=== PATIENT | male | born 1970 | race Caucasian/White ===

== ENCOUNTER 2016-12-07 06:44 | Emergency (ER) | payer BC ==
[2016-12-07 06:53] VITALS: BP 131/74
[2016-12-07] MEDS ORDERED: Sodium Chloride 0.9% 10 ML Syringe FLUSH PRN (07:02)
[2016-12-07] MEDS ORDERED: Ondansetron 4 MG/2 ML SDV IVPUSH ONE (07:02)
[2016-12-07] MEDS ORDERED: HYDROmorphone 1 MG/ML Syringe IVPUSH ONE ×2 (07:03→09:13)
[2016-12-07] MEDS ORDERED: Ketorolac 30 MG/ML SDV IVPUSH ONE (07:04)
--- NOTE | 2016-12-07 07:09 | EDM.PDOC ---
ED HPI GENERAL MEDICAL PROBLEM - General Chief Complaint: Abdominal Pain Stated Complaint: RT SIDE ABDOINAL PAIN Time Seen by Provider: 12/07/16 06:53 Source of Information: Reports: Patient History Limitations: Reports: No Limitations - History of Present Illness INITIAL COMMENTS - FREE TEXT/NARRATIVE: The patient presents with right flank and right abdominal pain. This started early this morning at 4am. He has nausea and vomiting. He has no diarrhea, dysuria or hematuria. He has a history of kidney stones. He denies fever, chills, cough, chest pain or shortness of breath. He has no gallbladder but he does have his appendix. Onset: Sudden Duration: Hour(s): (4am) Location: Reports: Abdomen (right side and flank) Quality: Reports: Sharp Severity: Severe Improves with: Reports: None Worsens with: Reports: None Associated Symptoms: Reports: Nausea/Vomiting. Denies: Chest Pain, Cough Right Abdomen Pain Score (Numeric/FACES): 10 - Related Data Allergies Allergy/AdvReac Type Severity Reaction Status Date / Time meperidine [From Demerol] Allergy Hives Verified 12/07/16 06:53 Home Meds: Home Meds Albuterol [Ventolin HFA] 2 puff INH Q4H PRN 12/23/13 [History] Tamsulosin HCl [Flomax] 0.4 mg PO DAILY #7 cap.er.24h 12/07/16 [Rx] oxyCODONE HCl/Acetaminophen [Percocet 5-325 mg Tablet] 1 - 2 each PO Q6HR PRN # 20 tablet 12/07/16 [Rx] Past Medical History Respiratory History: Reports: Asthma - Past Surgical History GI Surgical History: Reports: Cholecystectomy Male Surgical History: Reports: Kidney Stone Extraction Musculoskeletal Surgical History: Reports: Hip Replacement, ORIF Social & Family History - Tobacco Use Smoking Status *Q: Never Smoker - Caffeine Use Caffeine Use: Reports: None - Alcohol Use Days Per Week of Alcohol Use: 5 Number of Drinks Per Day: 2 Total Drinks Per Week: 10 - Recreational Drug Use Recreational Drug Use: No ED ROS GENERAL - Review of Systems Review Of Systems: See Below Constitutional: Reports: No Symptoms HEENT: Reports: No Symptoms Respiratory: Reports: No Symptoms Cardiovascular: Reports: No Symptoms Endocrine: Reports: No Symptoms GI/Abdominal: Reports: Abdominal Pain, Nausea, Vomiting. Denies: Diarrhea : Reports: Flank Pain (Right) Musculoskeletal: Reports: No Symptoms ED EXAM, GI/ABD - Physical Exam Exam: See Below Exam Limited By: No Limitations General Appearance: Alert, Mild Distress Ears: Normal External Exam Nose: Normal Inspection Head: Atraumatic, Normocephalic Neck: Normal Inspection Respiratory/Chest: No Respiratory Distress, Lungs Clear, Normal Breath Sounds Cardiovascular: Regular Rate, Rhythm, No Edema, No Murmur GI/Abdominal: Soft, No Organomegaly, No Mass, Tenderness (Mild tenderness to the right lateral abdomen.) Back Exam: Normal Inspection Course - Vital Signs Last Recorded V/S: Last Vital Signs Temp 96.9 F 12/07/16 06:50 Pulse 66 12/07/16 06:50 Resp 16 12/07/16 06:50 BP 131/74 12/07/16 06:50 Pulse Ox 97 12/07/16 06:50 - Orders/Labs/Meds Orders: Active Orders 24 hr Category Date Time Status Peripheral IV Care [RC] . DIRECTED Care 12/07/16 07:03 Active Abdomen Pelvis wo Cont [CT] Stat Exams 12/07/16 07:02 Taken Sodium Chloride 0.9% [Normal Saline] 1,000 ml Med 12/07/16 07:15 Active IV ASDIRECTED Sodium Chloride 0.9% [Saline Flush] Med 12/07/16 07:02 Active 10 ml FLUSH ASDIRECTED PRN ED Antiemetic Medication Reflex [OM.PC] Stat Oth 12/07/16 07:02 Ordered Peripheral IV Insertion Adult [OM.PC] Stat Oth 12/07/16 07:02 Ordered Medication Orders Sodium Chloride (Normal Saline) 1,000 mls @ 125 mls/hr IV ASDIRECTED ENEDELIA Last Admin: 12/07/16 07:19 Dose: 125 mls/hr Sodium Chloride (Saline Flush) 10 ml FLUSH ASDIRECTED PRN PRN Reason: Keep Vein Open Last Admin: 12/07/16 07:19 Dose: 10 ml Labs: Laboratory Tests 12/07/16 12/07/16 12/07/16 Range/Units 07:00 07:00 08:43 WBC 7.19 (4.23-9.07) K/mm3 RBC 5.47 (4.63-6.08) M/mm3 Hgb 15.5 (13.7-17.5) gm/L Hct 45.8 (40.1-51.0) % MCV 83.7 (79.0-92.2) fl MCH 28.3 (25.7-32.2) pg MCHC 33.8 (32.2-35.5) g/dl RDW Std Deviation 39.1 (35.1-43.9) fL Plt Count 192 (163-337) K/mm3 MPV 9.2 L (9.4-12.3) fl Neut % (Auto) 53.9 (34.0-67.9) % Lymph % (Auto) 32.5 (21.8-53.1) % Tift % (Auto) 10.4 (5.3-12.2) % Eos % (Auto) 2.8 (0.8-7.0) Baso % (Auto) 0.3 (0.1-1.2) % Neut # (Auto) 3.87 (1.78-5.38) K/mm3 Lymph # (Auto) 2.34 (1.32-3.57) K/mm3 [place] # (Auto) 0.75 (0.30-0.82) K/mm3 Eos # (Auto) 0.20 (0.04-0.54) K/mm3 Baso # (Auto) 0.02 (0.01-0.08) K/mm3 Sodium 143 (136-145) mEq/L Potassium 4.5 (3.5-5.1) mEq/L Chloride 109 H (98-107) mEq/L Carbon Dioxide 25 (21-32) mEq/L Anion Gap 13.5 (5-15) BUN 20 H (7-18) mg/dL Creatinine 1.0 (0.7-1.3) mg/dL Est Cr Clr Drug Dosing 98.31 mL/min Estimated GFR (MDRD) > 60 (>60) mL/min BUN/Creatinine Ratio 20.0 H (14-18) Glucose 167 H (74-106) mg/dL Calcium 8.3 L (8.5-10.1) mg/dL Total Bilirubin 0.4 (0.2-1.0) mg/dL AST 29 (15-37) U/L ALT 50 (16-63) U/L Alkaline Phosphatase 81 (46-116) U/L Total Protein 6.8 (6.4-8.2) g/dl Albumin 3.7 (3.4-5.0) g/dl Globulin 3.1 gm/dL Albumin/Globulin Ratio 1.2 (1-2) Lipase 247 (73-393) U/L Urine Color Yellow (Yellow) Urine Appearance Slt cloudy H (Clear) Urine pH 6.0 (5.0-8.0) Ur Specific [place] > or = 1.030 (1.005-1.030) Urine Protein 1+ H (Negative) Urine Glucose (UA) Negative (Negative) Urine Ketones Negative (Negative) Urine Occult Blood 3+ H (Negative) Urine Nitrite Negative (Negative) Urine Bilirubin Negative (Negative) Urine Urobilinogen 0.2 (0.2-1.0) Ur Leukocyte Esterase Negative (Negative) Urine RBC 50-75 H (0-5) /hpf Urine WBC 0-5 (0-5) /hpf Ur Epithelial Cells Not Reportable Ur Squamous Epith Cells 5-10 H (0-5) /hpf Urine Bacteria Rare (FEW) /hpf Urine Mucus Moderate H (FEW) /hpf Meds: Medications Generic Name Dose Route Start Last Admin Trade Name Freq PRN Reason Stop Dose Admin Sodium Chloride 1,000 mls @ 125 mls/hr 12/07/16 07:15 12/07/16 07:19 Normal Saline IV 125 mls/hr ASDIRECTED ENEDELIA Administration Sodium Chloride 10 ml 12/07/16 07:02 12/07/16 07:19 Saline Flush FLUSH 10 ml ASDIRECTED PRN Administration Keep Vein Open Discontinued Medications Generic Name Dose Route Start Last Admin Trade Name [place] PRN Reason Stop Dose Admin Hydromorphone HCl 1 mg 12/07/16 07:03 12/07/16 07:19 Dilaudid IVPUSH 12/07/16 07:04 1 mg ONETIME ONE Administration Ketorolac Tromethamine 30 mg 12/07/16 07:04 12/07/16 07:18 Toradol IVPUSH 12/07/16 07:05 30 mg ONETIME ONE Administration Ondansetron HCl 4 mg 12/07/16 07:02 12/07/16 07:18 Zofran IVPUSH 12/07/16 07:03 4 mg ONETIME ONE Administration - Re-Assessments/Exams Free Text/Narrative Re-Assessment/Exam: 12/07/16 07:08 I ordered an IV NS at 125mL/hr, zofran 4mg IV, toradol 30mg IV, dilaudid 1mg IV , labs, UA and CT of his abdomen and pelvis to look for a kidney stone. 12/07/16 09:14 His CBC is negative. His BUN is elevated at 20. His glucose is elevated at 167. His UA shows no UTI but the has blood. His CT shows 2.5mm proximal right ureteral calculus causes dilatation of the right ureter, and right collecting system. The right kidney is edematous and there is right perirenal stranding. He says the pain is coming back so I ordered more dilaudid and some flomax. I will give him a prescription for flomax and percocet. Departure - Departure Time of Disposition: 09:20 Disposition: Home, Self-Care 01 Condition: good Clinical Impression: Ureteric stone, Flank pain, Abdominal pain - Discharge Information Prescriptions: oxyCODONE HCl/Acetaminophen [Percocet 5-325 mg Tablet] 1 - 2 each PO Q6HR PRN # 20 tablet PRN Reason: Pain Tamsulosin HCl [Flomax] 0.4 mg PO DAILY #7 cap.er.24h Referrals: Deon Sidhu Jr, MD [Primary Care Provider] - Forms: ED Department Discharge Additional Instructions: ED HPI GENERAL MEDICAL PROBLEM - General Chief Complaint: Abdominal Pain Stated Complaint: RT SIDE ABDOINAL PAIN Time Seen by Provider: 12/07/16 06:53 Source of Information: Reports: Patient History Limitations: Reports: No Limitations - History of Present Illness INITIAL COMMENTS - FREE TEXT/NARRATIVE: The patient presents with right flank and right abdominal pain. This started early this morning at 4am. He has nausea and vomiting. He has no diarrhea, dysuria or hematuria. He has a history of kidney stones. He denies fever, chills, cough, chest pain or shortness of breath. He has no gallbladder but he does have his appendix. Onset: Sudden Duration: Hour(s): (4am) Location: Reports: Abdomen (right side and flank) Quality: Reports: Sharp Severity: Severe Improves with: Reports: None Worsens with: Reports: None Associated Symptoms: Reports: Nausea/Vomiting. Denies: Chest Pain, Cough Right Abdomen Pain Score (Numeric/FACES): 10 - Related Data Allergies Allergy/AdvReac Type Severity Reaction Status Date / Time meperidine [From Demerol] Allergy Hives Verified 12/07/16 06:53 Home Meds: Home Meds Albuterol [Ventolin HFA] 2 puff INH Q4H PRN 12/23/13 [History] Tamsulosin HCl [Flomax] 0.4 mg PO DAILY #7 cap.er.24h 12/07/16 [Rx] oxyCODONE HCl/Acetaminophen [Percocet 5-325 mg Tablet] 1 - 2 each PO Q6HR PRN # 20 tablet 12/07/16 [Rx] Past Medical History Respiratory History: Reports: Asthma - Past Surgical History GI Surgical History: Reports: Cholecystectomy Male Surgical History: Reports: Kidney Stone Extraction Musculoskeletal Surgical History: Reports: Hip Replacement, ORIF Social & Family History - Tobacco Use Smoking Status *Q: Never Smoker - Caffeine Use Caffeine Use: Reports: None - Alcohol Use Days Per Week of Alcohol Use: 5 Number of Drinks Per Day: 2 Total Drinks Per Week: 10 - Recreational Drug Use Recreational Drug Use: No ED ROS GENERAL - Review of Systems Review Of Systems: See Below Constitutional: Reports: No Symptoms HEENT: Reports: No Symptoms Respiratory: Reports: No Symptoms Cardiovascular: Reports: No Symptoms Endocrine: Reports: No Symptoms GI/Abdominal: Reports: Abdominal Pain, Nausea, Vomiting. Denies: Diarrhea : Reports: Flank Pain (Right) Musculoskeletal: Reports: No Symptoms ED EXAM, GI/ABD - Physical Exam Exam: See Below Exam Limited By: No Limitations General Appearance: Alert, Mild Distress Ears: Normal External Exam Nose: Normal Inspection Head: Atraumatic, Normocephalic Neck: Normal Inspection Respiratory/Chest: No Respiratory Distress, Lungs Clear, Normal Breath Sounds Cardiovascular: Regular Rate, Rhythm, No Edema, No Murmur GI/Abdominal: Soft, No Organomegaly, No Mass, Tenderness (Mild tenderness to the right lateral abdomen.) Back Exam: Normal Inspection Course - Vital Signs Last Recorded V/S: Last Vital Signs Temp 96.9 F 12/07/16 06:50 Pulse 66 12/07/16 06:50 Resp 16 12/07/16 06:50 BP 131/74 12/07/16 06:50 Pulse Ox 97 12/07/16 06:50 - Orders/Labs/Meds Orders: Active Orders 24 hr Category Date Time Status Peripheral IV Care [RC] . DIRECTED Care 12/07/16 07:03 Active Abdomen Pelvis wo Cont [CT] Stat Exams 12/07/16 07:02 Taken Sodium Chloride 0.9% [Normal Saline] 1,000 ml Med 12/07/16 07:15 Active IV ASDIRECTED Sodium Chloride 0.9% [Saline Flush] Med 12/07/16 07:02 Active 10 ml FLUSH ASDIRECTED PRN ED Antiemetic Medication Reflex [OM.PC] Stat Oth 12/07/16 07:02 Ordered Peripheral IV Insertion Adult [OM.PC] Stat Oth 12/07/16 07:02 Ordered Medication Orders Sodium Chloride (Normal Saline) 1,000 mls @ 125 mls/hr IV ASDIRECTED ENEDELIA Last Admin: 12/07/16 07:19 Dose: 125 mls/hr Sodium Chloride (Saline Flush) 10 ml FLUSH ASDIRECTED PRN PRN Reason: Keep Vein Open Last Admin: 12/07/16 07:19 Dose: 10 ml Labs: Laboratory Tests 12/07/16 12/07/16 12/07/16 Range/Units 07:00 07:00 08:43 WBC 7.19 (4.23-9.07) K/mm3 RBC 5.47 (4.63-6.08) M/mm3 Hgb 15.5 (13.7-17.5) gm/L Hct 45.8 (40.1-51.0) % MCV 83.7 (79.0-92.2) fl MCH 28.3 (25.7-32.2) pg MCHC 33.8 (32.2-35.5) g/dl RDW Std Deviation 39.1 (35.1-43.9) fL Plt Count 192 (163-337) K/mm3 MPV 9.2 L (9.4-12.3) fl Neut % (Auto) 53.9 (34.0-67.9) % Lymph % (Auto) 32.5 (21.8-53.1) % Tift % (Auto) 10.4 (5.3-12.2) % Eos % (Auto) 2.8 (0.8-7.0) Baso % (Auto) 0.3 (0.1-1.2) % Neut # (Auto) 3.87 (1.78-5.38) K/mm3 Lymph # (Auto) 2.34 (1.32-3.57) K/mm3 [place] # (Auto) 0.75 (0.30-0.82) K/mm3 Eos # (Auto) 0.20 (0.04-0.54) K/mm3 Baso # (Auto) 0.02 (0.01-0.08) K/mm3 Sodium 143 (136-145) mEq/L Potassium 4.5 (3.5-5.1) mEq/L Chloride 109 H (98-107) mEq/L Carbon Dioxide 25 (21-32) mEq/L Anion Gap 13.5 (5-15) BUN 20 H (7-18) mg/dL Creatinine 1.0 (0.7-1.3) mg/dL Est Cr Clr Drug Dosing 98.31 mL/min Estimated GFR (MDRD) > 60 (>60) mL/min BUN/Creatinine Ratio 20.0 H (14-18) Glucose 167 H (74-106) mg/dL Calcium 8.3 L (8.5-10.1) mg/dL Total Bilirubin 0.4 (0.2-1.0) mg/dL AST 29 (15-37) U/L ALT 50 (16-63) U/L Alkaline Phosphatase 81 (46-116) U/L Total Protein 6.8 (6.4-8.2) g/dl Albumin 3.7 (3.4-5.0) g/dl Globulin 3.1 gm/dL Albumin/Globulin Ratio 1.2 (1-2) Lipase 247 (73-393) U/L Urine Color Yellow (Yellow) Urine Appearance Slt cloudy H (Clear) Urine pH 6.0 (5.0-8.0) Ur Specific [place] > or = 1.030 (1.005-1.030) Urine Protein 1+ H (Negative) Urine Glucose (UA) Negative (Negative) Urine Ketones Negative (Negative) Urine Occult Blood 3+ H (Negative) Urine Nitrite Negative (Negative) Urine Bilirubin Negative (Negative) Urine Urobilinogen 0.2 (0.2-1.0) Ur Leukocyte Esterase Negative (Negative) Urine RBC 50-75 H (0-5) /hpf Urine WBC 0-5 (0-5) /hpf Ur Epithelial Cells Not Reportable Ur Squamous Epith Cells 5-10 H (0-5) /hpf Urine Bacteria Rare (FEW) /hpf Urine Mucus Moderate H (FEW) /hpf Meds: Medications Generic Name Dose Route Start Last Admin Trade Name Freq PRN Reason Stop Dose Admin Sodium Chloride 1,000 mls @ 125 mls/hr 12/07/16 07:15 12/07/16 07:19 Normal Saline IV 125 mls/hr ASDIRECTED ENEDELIA Administration Sodium Chloride 10 ml 12/07/16 07:02 12/07/16 07:19 Saline Flush FLUSH 10 ml ASDIRECTED PRN Administration Keep Vein Open Discontinued Medications Generic Name Dose Route Start Last Admin Trade Name Freq PRN Reason Stop Dose Admin Hydromorphone HCl 1 mg 12/07/16 07:03 12/07/16 07:19 Dilaudid IVPUSH 12/07/16 07:04 1 mg ONETIME ONE Administration Ketorolac Tromethamine 30 mg 12/07/16 07:04 12/07/16 07:18 Toradol IVPUSH 12/07/16 07:05 30 mg ONETIME ONE Administration Ondansetron HCl 4 mg 12/07/16 07:02 12/07/16 07:18 Zofran IVPUSH 12/07/16 07:03 4 mg ONETIME ONE Administration - Re-Assessments/Exams Free Text/Narrative Re-Assessment/Exam: 12/07/16 07:08 I ordered an IV NS at 125mL/hr, zofran 4mg IV, toradol 30mg IV, dilaudid 1mg IV , labs, UA and CT of his abdomen and pelvis to look for a kidney stone. 12/07/16 09:14 His CBC is negative. His BUN is elevated at 20. His glucose is elevated at 167. His UA shows no UTI but the has blood. His CT shows 2.5mm proximal right ureteral calculus causes dilatation of the right ureter, and right collecting system. The right kidney is edematous and there is right perirenal stranding. He says the pain is coming back so I ordered more dilaudid and some flomax. I will give him a prescription for flomax and percocet. Departure - Departure Time of Disposition: 09:20 Disposition: Home, Self-Care 01 Condition: good Clinical Impression: Ureteric stone, Flank pain, Abdominal pain - Discharge Information Prescriptions: oxyCODONE HCl/Acetaminophen [Percocet 5-325 mg Tablet] 1 - 2 each PO Q6HR PRN # 20 tablet PRN Reason: Pain Tamsulosin HCl [Flomax] 0.4 mg PO DAILY #7 cap.er.24h Referrals: Deon Sidhu Jr, MD [Primary Care Provider] - Forms: ED Department Discharge - My Orders Last 24 Hours: My Active Orders 12/07/16 07:02 Abdomen Pelvis wo Cont [CT] Stat Sodium Chloride 0.9% [Saline Flush] 10 ml FLUSH ASDIRECTED PRN ED Antiemetic Medication Reflex [OM.PC] Stat Peripheral IV Insertion Adult [OM.PC] Stat 12/07/16 07:03 Peripheral IV Care [RC] . DIRECTED 12/07/16 07:15 Sodium Chloride 0.9% [Normal Saline] 1,000 ml IV ASDIRECTED - Assessment/Plan Last 24 Hours: My Active Orders 12/07/16 07:02 Abdomen Pelvis wo Cont [CT] Stat Sodium Chloride 0.9% [Saline Flush] 10 ml FLUSH ASDIRECTED PRN ED Antiemetic Medication Reflex [OM.PC] Stat Peripheral IV Insertion Adult [OM.PC] Stat 12/07/16 07:03 Peripheral IV Care [RC] . DIRECTED 12/07/16 07:15 Sodium Chloride 0.9% [Normal Saline] 1,000 ml IV ASDIRECTED Take flomax daily. Take the percocet every 6 hours as needed for pain. Take an antiinflammatory such as motrin or aleve for pain. Follow up with Dr Sidhu or Dr Vance. Please return if you are worse. - My Orders Last 24 Hours: My Active Orders 12/07/16 07:02 Abdomen Pelvis wo Cont [CT] Stat Sodium Chloride 0.9% [Saline Flush] 10 ml FLUSH ASDIRECTED PRN ED Antiemetic Medication Reflex [OM.PC] Stat Peripheral IV Insertion Adult [OM.PC] Stat 12/07/16 07:03 Peripheral IV Care [RC] . DIRECTED 12/07/16 07:15 Sodium Chloride 0.9% [Normal Saline] 1,000 ml IV ASDIRECTED - Assessment/Plan Last 24 Hours: My Active Orders 12/07/16 07:02 Abdomen Pelvis wo Cont [CT] Stat Sodium Chloride 0.9% [Saline Flush] 10 ml FLUSH ASDIRECTED PRN ED Antiemetic Medication Reflex [OM.PC] Stat Peripheral IV Insertion Adult [OM.PC] Stat 12/07/16 07:03 Peripheral IV Care [RC] . DIRECTED 12/07/16 07:15 Sodium Chloride 0.9% [Normal Saline] 1,000 ml IV ASDIRECTED
[2016-12-07] MEDS ORDERED: Sodium Chloride 0.9% 1,000 ML IV SCH (07:15)
[2016-12-07] MEDS ORDERED: Tamsulosin 0.4 MG Cap.ER PO ONE (09:13)
--- NOTE | 2016-12-08 07:37 | CT ---
CT abdomen and pelvis Technique: Multiple axial sections were obtained from above the dome of the diaphragm inferiorly through the pubic symphysis. Intravenous and oral contrast was not utilized. Study has been performed as a ureteral stone protocol. Comparison: Previous stone protocol CT exam of 07/09/16 is available. Findings: Right renal pelvis is minimally prominent. Small obstructing stone noted within the proximal right ureter near the UPJ measuring about 2.5 mm. No other abnormal calcifications are seen along the course of the ureters. No abnormal calcifications are seen within the kidneys. Visualized lung bases show nothing acute. Diffuse fatty infiltration noted throughout the liver. Spleen size is normal. Adrenal glands show no nodule. Pancreas is within normal limits. Gallbladder not identified. Aorta shows atherosclerotic change which continues into the iliac vessels. No aneurysm is seen. No retroperitoneal adenopathy or mesenteric abnormalities are seen. Appendix is seen which appears normal. No pelvic mass or adenopathy is seen. Artifact noted from right hip prosthesis. Bone window settings were reviewed which appear within normal limits for the patient's age. Impression: 1. 2.5 mm obstructing stone located within the proximal right ureter at the UPJ. 2. No other abnormal calcifications are seen within the kidneys or ureters. 3. Fatty infiltration within the liver and other incidental findings. Diagnostic code #3 I agree with preliminary report issued by [email or web address] (report finalized on 12/07/16, 9:13 AM Central Time)
== END 2016-12-07 09:50 | disposition home or self-care (01) ==
LOC: JD.ED 06:44
DX: N20.1 Calculus of ureter (principal); J45.909 Unspecified asthma, uncomplicated; Z88.8 Allergy status to other drugs, medicaments and biological substances; Z90.49 Acquired absence of other specified parts of digestive tract; Z96.649 Presence of unspecified artificial hip joint
CPT/HCPCS: 36415; 74176; 80053; 81001; 83690; 85025; 96361; 96374; 96375; 96376; 99284; A9270; J1170; J1885; J2405; J7040; J7050

== ENCOUNTER 2019-04-08 09:21 | Emergency (ER) | payer BC ==
[2019-04-08 10:06] VITALS: BP 130/85; PULSE 79
--- NOTE | 2019-04-08 11:13 | CT ---
CT abdomen and pelvis Technique: Multiple axial sections were obtained from above the dome of the diaphragm inferiorly through the pubic symphysis. Intravenous and oral contrast not utilized. Comparison: Prior noncontrast renal stone protocol CT dated 12/07/16. Findings: Small nodule is noted within the posterior left costophrenic angle measuring 3 mm. This is most likely incidental. No acute parenchymal change is seen within either lung base. Fatty infiltration is noted within the liver. No focal abnormality is appreciated within the liver. Spleen appears within normal limits. Adrenal glands show no nodule. Pancreas is within normal limits. Aorta shows no aneurysm. Minimal atherosclerotic calcification noted within the aorta. No retroperitoneal adenopathy is seen. No mesenteric abnormalities are noted. No pelvic mass or adenopathy is seen. Appendix is seen which is normal in size. Bone window settings were reviewed which show no acute osseous abnormality. Artifact is noted from right hip prosthesis. Small partially obstructing stone is noted within the proximal right ureter measuring about 3 mm in size. No other ureteral calcifications are seen. This finding is felt to be fairly stable from previous exam. Impression: 1. 3 mm calcification within the proximal right ureter causing partial obstruction. This is similar to previous exam and has not changed in location. 2. Fatty infiltration within the liver. 3. Small nodule within left lung base which is felt to be incidental. Diagnostic code #3
--- NOTE | 2019-04-08 11:29 | EDM.PDOC ---
ED HPI GENERAL MEDICAL PROBLEM - General Chief Complaint: Flank Pain Stated Complaint: POSSIBLE KIDNEY STONES Time Seen by Provider: 04/08/19 09:40 Source of Information: Reports: Patient, RN Notes Reviewed - History of Present Illness INITIAL COMMENTS - FREE TEXT/NARRATIVE: 40-year-old male comes in with right back and flank pain. He had onset of this early this morning about 6-8 hours ago. At times the pain has been tremendously severe, sharp and shooting and at times more just a mild ache. The discomfort is more mild at time of arrival to ED. However it is still there. He has had some nausea but no vomiting. He has had prior kidney stones and this does feel similar. He has had prior cholecystectomy. No voiding symptomatology. No fever or chills. Right Flank Pain Score (Numeric/FACES): 3 - Related Data Allergies Allergy/AdvReac Type Severity Reaction Status Date / Time meperidine [From Demerol] Allergy Hives Verified 04/08/19 09:29 Home Meds: Home Meds Albuterol [Ventolin HFA] 2 puff INH Q4H PRN 12/23/13 [History] Acetaminophen/HYDROcodone [[place] 325-5 MG] 1 tab PO Q4H PRN #14 tablet 04/08/19 [Rx] Past Medical History Respiratory History: Reports: Asthma Genitourinary History: Reports: Other (See Below) Other Genitourinary History: kidney stones - Past Surgical History GI Surgical History: Reports: Cholecystectomy Male Surgical History: Reports: Kidney Stone Extraction Musculoskeletal Surgical History: Reports: Hip Replacement, ORIF Social & Family History - Tobacco Use Smoking Status *Q: Never Smoker Second Hand Smoke Exposure: No - Caffeine Use Caffeine Use: Reports: Coffee - Recreational Drug Use Recreational Drug Use: No ED ROS GENERAL - Review of Systems Review Of Systems: See Below Constitutional: Denies: Fever, Chills, Diaphoresis HEENT: Denies: Throat Pain Respiratory: Denies: Shortness of Breath Cardiovascular: Denies: Chest Pain GI/Abdominal: Reports: Nausea. Denies: Abdominal Pain, Vomiting Musculoskeletal: Reports: Back Pain. Denies: Leg Pain Skin: Reports: No Symptoms Neurological: Reports: No Symptoms ED EXAM, RENAL/ - Physical Exam Exam: See Below General Appearance: Alert, No Apparent Distress Throat/Mouth: Normal Inspection Head: Atraumatic Neck: Supple Respiratory/Chest: No Respiratory Distress, Lungs Clear, Normal Breath Sounds Cardiovascular: Regular Rate, Rhythm GI/Abdominal: Non-Tender Back Exam: CVA Tenderness (R). No: CVA Tenderness (L) Extremities: Normal Inspection, Normal Range of Motion Neurological: Alert, Oriented, No Motor/Sensory Deficits Skin Exam: Warm, Dry, Normal Color Course - Vital Signs Last Recorded V/S: Last Vital Signs Temp 97.1 F 04/08/19 09:28 Pulse 79 04/08/19 09:28 Resp 15 04/08/19 09:28 BP 130/85 04/08/19 09:28 Pulse Ox 96 04/08/19 09:28 - Orders/Labs/Meds Labs: Laboratory Tests 04/08/19 Range/Units 09:50 Urine Color Yellow (Yellow) Urine Appearance Clear (Clear) Urine pH 5.5 (5.0-8.0) Ur Specific [place] 1.025 (1.005-1.030) Urine Protein Negative (Negative) Urine Glucose (UA) Negative (Negative) Urine Ketones Negative (Negative) Urine Occult Blood 3+ H (Negative) Urine Nitrite Negative (Negative) Urine Bilirubin Negative (Negative) Urine Urobilinogen 0.2 (0.2-1.0) Ur Leukocyte Esterase Negative (Negative) Urine RBC 30-40 H (0-5) /hpf Urine WBC 0-5 (0-5) /hpf Ur Squamous Epith Cells 10-20 H (0-5) /hpf Urine Bacteria Few (FEW) /hpf Urine Mucus Not seen (FEW) /hpf - Re-Assessments/Exams Free Text/Narrative Re-Assessment/Exam: 04/08/19 14:[address] shows a 3 mm stone right proximal ureter causing partial obstruction. No other acute abnormality. See radiology report for details. Discomfort continues to not be bad while here in the ED. Discharge instructions as documented. Departure - Departure Time of Disposition: 11:26 Disposition: Home, Self-Care 01 Condition: Fair Clinical Impression: Kidney stone on right side, Ureteric colic - Discharge Information Prescriptions: Acetaminophen/HYDROcodone [[place] 325-5 MG] 1 tab PO Q4H PRN #14 tablet PRN Reason: Pain Instructions: Kidney Stones, [id number] Referrals: PCP,None [Primary Care Provider] - Forms: ED Department Discharge Additional Instructions: Drink plenty water to maintain hydration, use strainer to watch for stone. You can take Tylenol or ibuprofen for mild to moderate discomfort or hydrocodone if needed for more severe pain. Do not take Tylenol and hydrocodone at the same time. Do not drive when taking hydrocodone. Follow-up clinic if you do not pass this stone within 3-5 days as expected. Return to ED as needed if symptoms worsening in any way.
== END 2019-04-08 11:33 | disposition home or self-care (01) ==
LOC: JD.ED 09:21
DX: N20.2 Calculus of kidney with calculus of ureter (principal); J45.909 Unspecified asthma, uncomplicated; Z90.49 Acquired absence of other specified parts of digestive tract; Z88.5 Allergy status to narcotic agent; Z79.899 Other long term (current) drug therapy
CPT/HCPCS: 74176; 74176-26; 81001; 99284-25

== ENCOUNTER 2022-07-06 13:21 | Emergency (ER) | payer BC ==
[2022-07-06 13:37] VITALS: PULSE 77
[2022-07-06] MEDS ORDERED: Ondansetron 4 MG/2 ML SDV IVPUSH ONE (13:56)
[2022-07-06] MEDS ORDERED: HYDROmorphone 1 MG/ML Syringe IVPUSH STA (13:56)
[2022-07-06] MEDS ORDERED: Sodium Chloride 0.9% 1,000 ML IV ONE (13:57)
[2022-07-06 15:33] VITALS: BP 124/76
== END 2022-07-06 15:30 | disposition home or self-care (01) ==
LOC: JD.ED 13:21
DX: N20.1 Calculus of ureter (principal); Z88.8 Allergy status to other drugs, medicaments and biological substances; Z90.49 Acquired absence of other specified parts of digestive tract
CPT/HCPCS: 36415; 74176; 80053; 81001; 85025; 96361; 96374; 99284; J2405; J7030

== ENCOUNTER 2022-07-06 21:35 | Emergency (ER) | payer BC ==
[2022-07-06 21:47] VITALS: BP 153/97; PULSE 69
[2022-07-06] MEDS ORDERED: HYDROmorphone 1 MG/ML Syringe IVPUSH STA (21:58)
[2022-07-06] MEDS ORDERED: Ondansetron 4 MG Tab.DIS PO ONE ×2 (21:58→22:31)
== END 2022-07-06 22:40 | disposition home or self-care (01) ==
LOC: JD.ED 21:35
DX: N20.1 Calculus of ureter (principal); J45.909 Unspecified asthma, uncomplicated; Z88.5 Allergy status to narcotic agent; Z79.899 Other long term (current) drug therapy
CPT/HCPCS: 96374; 99283; A9270; J1170